=== PATIENT | male | born 1970 | race Caucasian/White ===

== ENCOUNTER 2018-03-23 14:14 | Emergency (ER) | payer OTHER ==
[2018-03-23 14:26] VITALS: BP 128/90
--- NOTE | 2018-03-23 15:25 | ED Physician Documentation ---
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 He denies any respiratory symptoms at this time he has been decontaminated at the scene with extensive Y washing and washed down and here in the emergency department he also is treated with a shower. He is with much improvement to his symptoms at the time of my evaluation. Review of Systems Constitutional: denies: Fever Eyes: reports: Irritation. denies: Decreased vision Ears: denies: Ear pain Nose: reports: Congestion Throat: denies: Sore throat Cardiac: denies: Chest pain / pressure, Palpitations Respiratory: denies: Dyspnea, Cough GI: denies: Abdominal Pain, Nausea, Vomiting : denies: Dysuria, Frequency Skin: reports: Rash Musculoskeletal: denies: Neck pain, Back pain, Extremity pain PD PAST MEDICAL HISTORY - Past Medical History Respiratory: Sleep apnea, CPAP use Neuro: Migraines GI: GERD : Kidney stones Musculoskeletal: Osteoarthritis, Chronic back pain - Present Medications Home Medications: Ambulatory Orders Medication Instructions Recorded Confirmed Celecoxib [CeleBREX] 100 03/23/18 Omeprazole Magnesium [Prilosec] 1 03/23/18 - Allergies Allergies/Adverse Reactions: Allergies Allergy/AdvReac Type Severity Reaction Status Date / Time No Known Drug Allergies Allergy Verified 03/23/18 14:26 - Social History Does the pt smoke?: No Smoking Status: Current every day smoker Does the pt drink ETOH?: Yes Does the pt have substance abuse?: No PD ED PE NORMAL - Vitals Vital signs reviewed: Yes (hypertensive ) - General General: Alert and oriented X 3, No acute distress, Well developed/nourished - HEENT HEENT: Atraumatic, PERRL, EOMI - Neck Neck: Supple, no meningeal sign, No bony TTP - Cardiac Cardiac: RRR, No murmur - Respiratory Respiratory: No respiratory distress, Clear bilaterally - Abdomen Abdomen: Soft, Non tender - Back Back: No CVA TTP, No spinal TTP - Derm Derm: Normal color, Warm and dry, Other (non-specific erythema to the skin ) - Extremities Extremities: No deformity, No edema - Neuro Neuro: Alert and oriented X 3, 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, No motor deficit, No sensory deficit, Normal speech Eye Opening: Spontaneous Motor: Obeys Commands Verbal: Oriented GCS Score: 15 - Psych Psych: Normal mood, Normal affect Results - Vitals Vitals: Vital Signs - 24 hr 03/23/18 03/23/18 14:20 15:27 Temperature 37.5 C Heart Rate 84 65 Respiratory 20 16 Rate Blood Pressure 128/90 H 128/90 H O2 Saturation 94 94 Oxygen O2 Source Room air PD MEDICAL DECISION MAKING - ED course Complexity details: considered differential, d/w patient ED course: 48-year-old male with hydraulic fluid exposure has been decontaminated at the scene he has had eyewash done at the scene here in the emergency department he takes another shower for further decontamination and he feels improved. He did have some aerosolized inhalation of this hydraulic fluid which could present with a delayed pneumonitis. He has no symptoms now and poison control was contacted and recommends conservative treatment. Departure - Departure Disposition: 01 Home, Self Care Clinical Impression: Chemical exposure Instructions: ED Inhalation Chemical, ED Chemical Exp Skin Follow-Up: Your, doctor [Other] Discharge Date/Time: 03/23/18 15:31
== END 2018-03-23 15:31 | disposition home or self-care (01) ==
LOC: EDBD → ED 14:14
DX: Z77.098 Contact with and (suspected) exposure to other hazardous, chiefly nonmedicinal, chemicals (principal); R21 Rash and other nonspecific skin eruption; F17.200 Nicotine dependence, unspecified, uncomplicated
CPT/HCPCS: 99282; 99285